=== PATIENT | male | born 1970 | race Caucasian/White ===

== ENCOUNTER 2023-12-13 09:00 | Day surgery (SDC) | payer OTHER, SELFPAY ==
[2023-12-13 09:23] VITALS: BP 131/94; PULSE 55; RESP 16; TEMP 36.5; O2SAT 100; BMI 30.5
[2023-12-13] MEDS: Lactated Ringers 1,000 ML 15 ML IV (09:31)
--- NOTE | 2023-12-13 10:36 | H&P.OPEN ---
HPI - General HPI Narrative LAKISHA OWENS, is a 53 M who presents for screening colonoscopy. He has had 1 colonoscopy about 10 years ago which he believes was normal. He denies any abdominal pain or blood in the stool. He is not on any blood thinners. No family history of colon cancer. [facility] Medical History (Updated 12/09/23 @ 12:07 by Darline Preciado) Alcohol use Arthritis CPAP (continuous positive airway pressure) dependence Family hx of colon cancer History of echocardiogram History of edema History of pain when walking History of stress test HTN (hypertension) Hyperlipidemia Loss of hearing Non-smoker Personal history of colonic polyps Wears glasses Home Medications lisinopril 40 mg tablet 40 mg PO DAILY 11/22/23 [History Last Taken Unknown] Allergy/AdvReac Type Severity Reaction Status Date / Time No Known Allergies Allergy Verified 12/09/23 12:00 Family History (Updated 11/22/23 @ 08:36 by Reanna Vivas) Grandmother Colon cancer Uncle Colon cancer Father Parkinson disease Surgical History (Updated 11/22/23 @ 08:34 by Reanna Vivas) Hx of arthroscopic knee surgery Hx of colonoscopy Social History (Updated 11/22/23 @ 08:37 by Reanna Vivas) household members: spouse current occupational status: employed current occupation: [employer] Smoking Status: Never smoker alcohol intake: current alcohol intake frequency: a few times a week substance use type: does not use what type of physical activity do you participate in: bicycling Past Medical/Surgical History Planned Operation Planned Operative Procedure/s: CSCOPE OA Previous Hospitalizations/Surgeries HX Hospitalizations: No Any Problems With Anesthesia: No You/Your Family Experience Fever (Hyperthermia) With Anes: No Cholinesterase deficiency: No Cardiovascular Hx Hypertension: Yes (CONTROLLED WITH MED) Respiratory Hx Sleep Apnea: Yes CPAP: Yes (NONCOMPLIANT) BIPAP: No Hx Respiratory Tract Infection/Cold (presently): No Result (for STOP score): Positive Smoking Status: Never smoker Neurological Does patient have nerve stimulator: No Reproduction : No Miscellaneous Recent Exposure to Contagious Disease: No Allergies No Known Allergies Allergy (Verified 12/09/23 12:00) Discharge Is Pt Admitted From a Jail, or a Penitentiary: No After D/C, Where Do you Plan to Go: Return Home Vital Signs Vital Signs Vital Signs: 12/13/23 09:23 12/13/23 09:23 Temperature 97.7 F L Temperature Source Temporal Pulse Rate 55 L Respiratory Rate 16 Respiratory Pattern Normal Blood Pressure 131/94 H Blood Pressure Mean 106 Blood Pressure Source Monitor Blood Pressure Position Semi-Fowlers Blood Pressure Location Left Arm Pulse Ox 100 Oxygen Delivery Method Room Air Weight Weight: 206 lb 12.697 oz Body Mass Index (BMI) 30.5 Physical Exam Const alert and oriented x3 HEENT normocephalic Eyes PERRL Resp normal respiratory effort and normal air movement Cardio regular rate and regular rhythm GI soft to palpation, non-tender and non-distended Extremity normal to inspection Assessment & Plan Assessment/Plan (1) Encounter for screening for malignant neoplasm of colon: PLAN: I explained endoscopy in detail to the patient. I explained the risks including but not limited to stroke or heart attack with anesthesia, perforation of the GI tract, bleeding, infection. I explained that any of these could necessitate further emergency surgery. The patient understands and all questions were answered sufficiently. The patient wishes to proceed with procedure. Marcello Nagel MD Pager: [facility] [address] [place] [address] [address] [place] [address] Office: Surgery Risks - Colonoscopy Risks Include but are not Limited To: Risks include but are not limited to: Bleeding, perforation requiring further surgery, inability to complete colonoscopy requiring barium enema.
[2023-12-13 10:54] VITALS: BP 131/94; BP 96/57; PULSE 57; RESP 14; TEMP 36.1; O2SAT 99
--- NOTE | 2023-12-13 10:56 | OP.COLON_ITS ---
Patient Name: Jelani Powers Procedure Date: 12/13/2023 10:15 AM Date of : 1970 Age: 53 Procedure: Colonoscopy Indications: Screening for colorectal malignant neoplasm Providers: Marcello Nagel MD Medicines: Propofol per Anesthesia Patient Profile: This is a 53 year old male. Refer to note in patient chart for documentation of history and physical. Last Colonoscopy: 10 years ago. Complications: No immediate complications. Procedure: Pre-Anesthesia Assessment: - Prior to the procedure, a History and Physical was performed, and patient medications and allergies were reviewed. The patient's tolerance of previous anesthesia was also reviewed. The risks and benefits of the procedure and the sedation options and risks were discussed with the patient. All questions were answered, and informed consent was obtained. Prior Anticoagulants: The patient has taken no anticoagulant or antiplatelet agents. After reviewing the risks and benefits, the patient was deemed in satisfactory condition to undergo the procedure. After I obtained informed consent, the scope was passed under direct vision. Throughout the procedure, the patient's blood pressure, pulse, and oxygen saturations were monitored continuously. The Colonoscope was introduced through the anus and advanced to the cecum, identified by appendiceal orifice and ileocecal valve. The colonoscopy was performed without difficulty. The patient tolerated the procedure well. The quality of the bowel preparation was good. The ileocecal valve, appendiceal orifice, and rectum were photographed. Scope In: 10:39:27 AM Scope Withdrawal Time 0 hours 4 minutes 20 seconds Scope Out: 10:45:58 AM Total Procedure Duration Time 0 hours 6 minutes 31 seconds Findings: The entire examined colon appeared normal on direct and retroflexion views. Impression: - The entire examined colon is normal on direct and retroflexion views. - No specimens collected. Recommendation: - Discharge patient to home. - Resume previous diet. - Continue present medications. - Repeat colonoscopy in 10 years for screening purposes. Procedure Code(s): --- Professional --- 95004, Colonoscopy, flexible; diagnostic, including collection of specimen(s) by brushing or washing, when performed (separate procedure) Diagnosis Code(s): --- Professional --- Z12.11, Encounter for screening for malignant neoplasm of colon CPT copyright 2021 [employer]. All rights reserved. The codes documented in this report are preliminary and upon coffee sampler review may be revised to meet current compliance requirements. Marcello Nagel MD 12/13/2023 10:56:17 AM This report has been signed electronically. Number of Addenda: 0 Note Initiated On: 12/13/2023 10:15 AM
--- NOTE | 2023-12-13 10:56 | OP.CCLET_ITS ---
12/13/2023 Janeth Watkins Re : Colonoscopy procedure for Jelani Hollis Roland This procedure was performed on Wednesday, December 13, 2023. My impressions and recommendations are as follows: Impressions : - The entire examined colon is normal on direct and retroflexion views. - No specimens collected. Recommendations : - Discharge patient to home. - Resume previous diet. - Continue present medications. - Repeat colonoscopy in 10 years for screening purposes. My findings are described in the full procedure note, which is enclosed. If I can be of further assistance, please feel free to contact me at Doctor phone number(s): , Work: . Sincerely, Marcello Nagel MD 12/13/2023 10:56:17 AM This report has been signed electronically.
[2023-12-13 11:01] VITALS: BP 131/94; BP 97/61; PULSE 59; RESP 12; O2SAT 93
[2023-12-13 11:06] VITALS: BP 100/66; BP 131/94; PULSE 57; RESP 14; O2SAT 95
[2023-12-13 11:09] VITALS: BP 106/71; BP 131/94; PULSE 55; RESP 14; TEMP 36.5; O2SAT 95
[2023-12-13 11:31] VITALS: BP 131/94
== END 2023-12-13 11:41 | disposition home or self-care (01) ==
LOC: EN 09:06 → AC 09:07
PROVIDERS: PCP Physician Assistant; Referring Provider Surgery; Visit Provider Surgery
PROC: 0DJD8ZZ Inspection of Lower Intestinal Tract, Via Natural or Artificial Opening Endoscopic (ICD-10-PCS; CPT 45378; principal; 2023-12-13 09:55)
DX: Z12.11 Encounter for screening for malignant neoplasm of colon (principal); I10 Essential (primary) hypertension; E78.5 Hyperlipidemia, unspecified; Z80.0 Family history of malignant neoplasm of digestive organs; Z79.899 Other long term (current) drug therapy; Z86.010 Personal history of colon polyps
CPT/HCPCS: 45378; J7120; J2405

== ENCOUNTER → 2024-06-13 | Outpatient (CLI) | payer OTHER, SELFPAY ==
--- NOTE | 2024-06-13 11:54 | NEURO_ITS ---
NCS and/or EMG Patient Report Ordering Doctor: Janeth Watkins DATE OF SERVICE: 06/13/24 Jelani presents for electrodiagnostic testing of the left upper limb. He reports numbness and tingling in the left hand for the past several weeks following a 5- day bike ride. Electrodiagnostic findings: Left median motor nerve demonstrates prolonged latency with normal amplitude and borderline reduced conduction velocity. Left ulnar motor response, including conduction across the elbow is within normal limits. Prolonged left median sensory latency at the wrist. Needle EMG testing was performed in the left upper limb. All muscles tested showed no evidence of denervation with normal motor unit action potentials. Electrodiagnostic impression: This is an abnormal study in the left upper limb 1. Electrodiagnostic findings suggestive of left-sided median mononeuropathy. This is consistent with a mild left carpal tunnel syndrome. Multi Select Codes Neurology Neurology Interp Codes: 99364-64 Musc test done w/n test comp (interp) and 68234-00 Nrv cndj tst 5-6 studies (interp)
== END | disposition home or self-care (01) ==
LOC: PSN 09:46
PROVIDERS: PCP Physician Assistant; Referring Provider Physician Assistant; Visit Provider Physician Assistant
DX: R20.0 Anesthesia of skin (principal)
CPT/HCPCS: 95886; 95909